=== PATIENT | male | born 1975 | race Caucasian/White ===

== ENCOUNTER 2022-05-07 18:02 | Emergency (ER) | payer SELFPAY ==
[2022-05-07 18:11] VITALS: BP 170/92; PULSE 79; RESP 18; TEMP 97.9; BMI 32.9
[2022-05-07] MEDS ORDERED: CEPHALEXIN MONOHYDRATE 500 MG CAPSULE (UD) PO ONE (20:03)
[2022-05-07] MEDS ORDERED: CEPHALEXIN MONOHYDRATE 500 MG CAPSULE (UD) ONE (20:05)
== END 2022-05-07 21:03 | disposition home or self-care (01) ==
LOC: JER 18:02
DX: L03.031 Cellulitis of right toe (principal)
CPT/HCPCS: 73630-TC-RT-FY; 99283-25